=== PATIENT | male | born 1980 ===

== ENCOUNTER 2020-12-03 18:36 | Emergency (ER) | payer MEDICAID ==
[~2020-12-03] VITALS: Ht 180.3 cm; Wt 81.8 kg
[2020-12-03 18:47] VITALS: TEMP 97.6
[2020-12-03 20:55] VITALS: BP 92/66; PULSE 84
== END 2020-12-03 20:55 | disposition home or self-care (01) ==
LOC: COL.ER 18:36
DX: S81.812A Laceration without foreign body, left lower leg, initial encounter (principal); S60.512A Abrasion of left hand, initial encounter; S50.812A Abrasion of left forearm, initial encounter; V86.59XA Driver of other special all-terrain or other off-road motor vehicle injured in nontraffic accident, initial encounter
CPT/HCPCS: J1885